=== PATIENT | male | born 1945 | race Caucasian/White ===

== ENCOUNTER 2018-02-01 12:42 | Emergency (ER) | payer MEDICARE ==
[~2018-02-01] VITALS: Ht 167.6 cm; Wt 72.7 kg
[~2018-02-01 12:42] MED LIST: AUGMENTIN875TAB PO; BENZONATATE200 MG PO; BL ADULT ASA81 MG PO; DOXYCYC MONO100 M1 PO; FERROUS SULF325 M3 PO; FLONASE NASAL50 MCG; FUROSEMIDE20 MG PO; GLIPIZIDE5 M2 PO; LANTUS100 MG/ML SC; LOVAZA1 GM PO; METFORMIN500 M1 PO; METOPROLOL SUCC50 MG PO; PLAVIX75 MG PO; RAMIPRIL2.5 MG PO; SIMCOR1 TA1 PO; TET/DIP TOX1 ML IM; TRULICITY1.5 MG/0.5
[2018-02-01 13:30] LABS: HEMATOCRIT 48.3 % (39.0-50.0); HEMOGLOBIN 16.6 g/dl (14.0-18.0); IMMATURE GRANULOCYTES 0.3 % (0.0-5.0); MEAN CORPUSCULAR HGB 32.3 pG CALC (26.0-32.0); MEAN CORPUSCULAR HGB CONC 34.4 g/L CALC (32.0-36.0); NEUT# 9.12 thou/uL (1.82-7.42); RED BLOOD COUNT 5.14 mill/uL (4.70-6.10); RED CELL DISTRI WIDTH 12.6 % (11.5-15.5)
[2018-02-01 14:20] LABS: ALBUMIN 3.9 g/dL (3.2-5.0); ALKALINE PHOSPHATASE 125 u/l (38-126); AMYLASE 63 u/l (30-110); ANION GAP 15 (6-22 (CALC)); BILIRUBIN, TOTAL 3.1 mg/dL (0.0-1.4); BUN 21 mg/dL (8-23); BUN/CREATININE RATIO 20 (12-20 (CALC)); CARBON DIOXIDE 23 mmol/l (22-30); CHLORIDE 108 mmol/l (95-108); GFR > 60 ML/MIN (>=60 (CALC)); GFR FOR AFR.AMER. > 60 ML/MIN (>=60 (CALC)); LIPASE 122 u/l (23-300); POTASSIUM 4.7 mmol/l (3.5-5.1); SODIUM 141 mmol/l (137-146); TOTAL PROTEIN 6.9 g/dL (6.3-8.2)
[2018-02-01 14:22] LABS: SGOT/AST > 750 u/l (19-48)
[2018-02-01] MEDS ORDERED: VITAMIN B-125000 MCG SL (15:15)
[2018-02-01] MEDS ORDERED: ENTRESTO 49-511 TAB PO (15:16)
[2018-02-01] MEDS ORDERED: LIPITOR80 M1 PO (15:17)
[2018-02-01] MEDS ORDERED: NIACIN250 MG PO (15:17)
[2018-02-01] MEDS ORDERED: SPIRONOLACTONE25 MG PO (15:18)
[2018-02-01] MEDS ORDERED: IRON COMPLEX PO (15:19)
[2018-02-01] MEDS ORDERED: JARDIANCE25 MG PO (16:12)
[2018-02-01] MEDS ORDERED: PHENERGAN25 MG RE (16:49)
[2018-02-01 16:59] VITALS: BP 105/53
== END 2018-02-01 17:15 | disposition home or self-care (01) ==
LOC: ED 12:42
PROVIDERS: Family Medicine
DX: K52.9 Noninfective gastroenteritis and colitis, unspecified (principal); R74.8 Abnormal levels of other serum enzymes; E11.9 Type 2 diabetes mellitus without complications; Z95.0 Presence of cardiac pacemaker

== ENCOUNTER 2024-04-26 23:45 | Emergency (ER) | payer MEDICARE ==
[~2024-04-26] VITALS: Ht 167.6 cm; Wt 70.0 kg
[~2024-04-26 23:45] MED LIST changes: +ACETAMINOPHEN325 MG PO; +BASAGLAR K100 UNIT/M SC; +BUMETANIDE1 MG PO; +CORLANOR5 MG PO; +CRESTOR20 MG PO; +EFFIENT10 MG PO; +ELIQUIS5 MG PO; +ENTRESTO 49-511 TAB PO; +IRON COMPLEX PO; +JANUVIA50 MG PO; +JARDIANCE25 MG PO; +LEVOTHYROXIN100 MCG PO; +LIPITOR80 M1 PO; +METOLAZONE2.5 MG PO; +MIRALAX17 GM; +NIACIN250 MG PO; +NOVOLOG100 UNIT SC; +PHENERGAN25 MG RE; +SLOW-MAG PO; +SPIRONOLACTONE25 MG PO; +TRAMADOL HYDROC50 M1 PO; +VITAMIN B-125000 MCG SL; +VITAMIN D-32000 UNI1 PO; +ZETIA10 MG PO
[2024-04-26 23:58] VITALS: BP 91/63
[2024-04-27] VITALS (7 sets, daily range): BP systolic 83–100; BP diastolic 58–67
[2024-04-27 00:45] LABS: BASO% 0.7 % (0-3); EOS% 1.6 % (0-8); HEMATOCRIT 47.8 % (39.0-50.0); HEMOGLOBIN 15.1 g/dl (14.0-18.0); IMMATURE GRANULOCYTES 0.3 % (0.0-5.0); LYMPH% 21.9 % (15-41); MEAN CELL VOLUME 88.2 fL CALC (80.0-100.0); MEAN CORPUSCULAR HGB 27.9 pG CALC (26.0-32.0); MEAN CORPUSCULAR HGB CONC 31.6 g/dL CAL (32.0-36.0); MONO% 15.7 % (2-13); NEUT# 4.53 thou/uL (1.82-7.42); NEUT% 59.8 % (42-76); RED BLOOD COUNT 5.42 mill/uL (4.70-6.10); RED CELL DISTRI WIDTH 15.4 % (11.5-15.5)
[2024-04-27] MEDS ORDERED: CORDARONE/200 MG/TAB PO (00:48)
[2024-04-27] MEDS ORDERED: BASAGLAR K100 UNIT/M SC (00:49)
[2024-04-27 00:53] LABS: INTERNATIONAL NORMALIZED RATIO 1.7 RATIO (0.7-1.3)
[2024-04-27 00:56] LABS: ALBUMIN 3.6 g/dL (3.2-5.0); BILIRUBIN, TOTAL 1.3 mg/dL (0.2-1.3); CREATININE 1.4 mg/dL (0.7-1.3); TOTAL PROTEIN 6.4 g/dL (6.3-8.2)
[2024-04-27] MEDS ORDERED: CORLANOR5 MG PO (00:56)
[2024-04-27 00:57] LABS: POTASSIUM 5.1 mmol/l (3.5-5.1)
[2024-04-27] MEDS ORDERED: FLEXERIL5 M1 PO (00:57)
[2024-04-27 00:58] LABS: PROTHROMBIN TIME 17.8 SECONDS (9.0-12.5)
[2024-04-27] MEDS ORDERED: GABAPENTIN100 MG PO (00:58)
[2024-04-27] MEDS ORDERED: LEVOTHYROXIN100 MCG PO (00:59)
[2024-04-27] MEDS ORDERED: TOPROL XL25 M1 PO (01:00)
[2024-04-27] MEDS ORDERED: PRASUGREL10 MG PO (01:02)
[2024-04-27] MEDS ORDERED: OMEGA 31000 MG PO (01:02)
[2024-04-27] MEDS ORDERED: ROSUVASTATIN CA20 MG PO (01:03)
[2024-04-27] MEDS ORDERED: ENTRESTO 24-261 TAB PO (01:04)
[2024-04-27] MEDS ORDERED: SPIRONOLACT25 MG PO (01:05)
[2024-04-27] MEDS ORDERED: TRAMADOL HYDROC50 M1 PO (01:06)
== END 2024-04-27 03:54 | disposition home or self-care (01) ==
LOC: ED 23:45
PROVIDERS: Emergency Medicine
DX: I11.0 Hypertensive heart disease with heart failure (principal); I50.42 Chronic combined systolic (congestive) and diastolic (congestive) heart failure; E11.9 Type 2 diabetes mellitus without complications; I25.10 Atherosclerotic heart disease of native coronary artery without angina pectoris; I25.2 Old myocardial infarction; Z79.84 Long term (current) use of oral hypoglycemic drugs; Z79.4 Long term (current) use of insulin; Z95.810 Presence of automatic (implantable) cardiac defibrillator